=== PATIENT | male | born 1965 | race Caucasian/White ===

== ENCOUNTER → 2016-09-13 | Outpatient (CLI) | payer SELFPAY ==
--- NOTE | 2016-09-13 10:55 | DI ---
Indication: ITS.REASON: K21.9 GASTROESOPHAGEAL REFLUX PROCEDURE: US GALLBLADDER: Encounter: Initial Comparison: None Technique: Grayscale and color Doppler sonographic imaging of the right upper quadrant of the abdomen was performed. Findings: Hepatic parenchyma is homogeneous without evidence for focal mass. The gallbladder is normal. There is no wall thickening, pericholecystic fluid, sonographic Ring's sign or cholelithiasis. The common bile duct is minimally prominent measuring 7 mm. No intrahepatic biliary ductal dilatation demonstrated. Visualized portions of the head and body of the pancreas are unremarkable. The right kidney is present without collecting system dilatation. The right kidney measures 10.9 cm in length. Impression: No sonographic evidence of cholelithiasis/cholecystitis. .
== END ==
LOC: IMA 06:16
PROVIDERS: ATTEND Internal Medicine
DX: K21.9 Gastro-esophageal reflux disease without esophagitis (principal)